=== PATIENT | female | born 1945 | race Caucasian/White ===

== ENCOUNTER → 2020-11-04 | Day surgery (SDC) | payer OTHER, MEDICARE | END | disposition home or self-care (01) | LOC: FRADUS-SUR 13:46 | PROVIDERS: ATTEND Surgery Surgical Oncology | PROC: 0HBT3ZX Excision of Right Breast, Percutaneous Approach, Diagnostic (ICD-10-PCS; principal; 2020-11-04) | DX: D24.1 Benign neoplasm of right breast (principal); N60.31 Fibrosclerosis of right breast; N64.89 Other specified disorders of breast; N63.14 Unspecified lump in the right breast, lower inner quadrant | CPT/HCPCS: 19083; 77065-TC; 87899; 88305-TC; A4648 ==